=== PATIENT | male | born 1960 | race Caucasian/White ===

== ENCOUNTER 2022-11-02 12:19 | Emergency (ER) | payer BC, OTHER ==
[~2022-11-02] VITALS: Ht 175.3 cm; Wt 70.2 kg
[2022-11-02] MEDS ORDERED: DOXYCYCLINE HYCLATE 100MG TABLET PO ONE (13:45)
[2022-11-02] MEDS ORDERED: DOXY-443 PO (13:47)
[2022-11-02 14:02] VITALS: BP 164/79; TEMP 98.7; O2SAT 98
== END 2022-11-02 14:06 | disposition home or self-care (01) ==
LOC: M ED 13:52
DX: S20.469A Insect bite (nonvenomous) of unspecified back wall of thorax, initial encounter (principal); W57.XXXA Bitten or stung by nonvenomous insect and other nonvenomous arthropods, initial encounter; Y92.89 Other specified places as the place of occurrence of the external cause; Y93.89 Activity, other specified; Y99.8 Other external cause status; F17.200 Nicotine dependence, unspecified, uncomplicated